=== PATIENT | female | born 1970 | race American Indian/Alaskan Native ===

== ENCOUNTER 2016-09-25 10:05 | Outpatient (CLI) | payer OTHER ==
--- NOTE | 2016-09-25 11:35 | Mammography Report ---
Screening mammogram: The patient has a diffusely symmetric and dense breast pattern bilaterally. In the MLO projection there is a focal asymmetry posteriorly which is not identified in the CC projection. In the right MLO view there is a focal asymmetry in the anterior superior breast. In the CC projection there are couple asymmetries noted in the medial breast which may be located superiorly in the lateral projection. No recent prior studies for comparison. CAD used. Impression: Bilateral breast asymmetries. Recommendation: Bilateral mammographic imaging and ultrasound as needed. BI-RADS CATEGORY: 0 = Needs additional imaging evaluation ACR BI-RADS MAMMOGRAPHIC CODES: 0 = Needs additional imaging evaluation; 1 = Negative; 2 = Benign; 3 = Probably benign; 4 = Suspicious; 5 = Malignant; 6 = Known biopsy-proven malignancy COMMENT: 1. Dense breast tissue, i.e., adenosis, fibrocystic changes, etc., may obscure an underlying neoplasm. 2. Approximately 10% of cancers are not detected with mammography. 3. A negative mammography report should not delay biopsy if a clinically suspicious mass is present..
--- NOTE | 2016-09-25 11:49 | Ultrasound Report ---
Pelvic ultrasound: Endovaginal and transabdominal imaging demonstrates an anteflexed uterus measuring 8.8 x 10.1 x 12.3 cm. There is a partially exophytic, anterior, inhomogeneous fundal mass measuring 6 cm. There is a posterior fundal inhomogeneous and mostly hypoechoic mass measuring 3.9 cm. The myometrium is generally inhomogeneous. The endometrium appears to be slightly displaced posteriorly by the anterior fundal mass with a thickness of 1 cm. The left ovary is not identified by either approach. Right ovary measures 3.8 cm and contains a 2.3 cm cyst. No free fluid identified. Impression: 1. Enlarged multi-fibroid uterus. The anterior fibroid could BE submucous in location. 2. Nonvisualized left ovary.
== END 2016-09-25 10:06 | disposition home or self-care (01) ==
LOC: SPVWC 10:05
PROVIDERS: ATTEND Family Medicine
DX: Z12.31 Encounter for screening mammogram for malignant neoplasm of breast (principal); D25.9 Leiomyoma of uterus, unspecified; N85.2 Hypertrophy of uterus; N83.201 Unspecified ovarian cyst, right side
CPT/HCPCS: 76830; 76856; G0202; 77067

== ENCOUNTER 2017-03-04 10:24 | Outpatient (CLI) | payer OTHER ==
--- NOTE | 2017-03-04 12:43 | Mammography Report ---
BILATERAL DIGITAL DIAGNOSTIC MAMMOGRAM and BILATERAL BREAST ULTRASOUND: 03/04/17 10:24:00 CLINICAL: Recall to evaluate bilateral asymmetries. COMPARISON:09/25/16 screening FINDINGS: Bilateral lateralmedial and bilateral spot compression views were performed and demonstrate persistent asymmetries. Ultrasound of the right breast (including all four quadrants and the retroareolar area) was performed. An oval solid hypoechoic smooth mass at 12 o'clock 3 cm from the nipple measures 1.4 x 1.0 x 1.4 cm. A bilobed solid mass at 1 o'clock 5.5 cm from the nipple measures 1.3 x 0.4 x 0.8 cm. A cyst at 2:30 o'clock 4 cm from the nipple measures 1.0 x 0.9 x 0.4 cm. Ultrasound of the right axilla demonstrated a single lymph node with benign morphology measuring 1.2 x 1.1 x 0.5 centimeters. Ultrasound of the inner left breast was performed and demonstrated no mass or cyst to correlate with mammographic asymmetry which is far posterior near the pectoral muscle. A complex cyst at 9 o'clock 2 cm from the nipple measures 1.5 x 0.4 x 1.3 cm. IMPRESSION: 1. 2 solid masses in the right breast. Recommend ultrasound guided needle core biopsy to exclude malignancy.2. A probably benign left inner posterior circumscribed asymmetry with no ultrasound correlate. Recommend six month followup left mammogram. I discussed the findings and the recommendation for needle core biopsy of two right breast masses with the patient at the time of the examination. BI-RADS CATEGORY: 4--Suspicious RECOMMENDATION: Ultrasound guided needle biopsy of two right breast masses. ACR BI-RADS MAMMOGRAPHIC CODES: 0 = Needs additional imaging evaluation; 1 = Negative; 2 = Benign; 3 = Probably benign; 4 = Suspicious; 5 = Malignant; 6 = Known biopsy-proven malignancy COMMENT: 1. Dense breast tissue, i.e., adenosis, fibrocystic changes, etc., may obscure an underlying neoplasm. 2. Approximately 10% of cancers are not detected with mammography. 3. A negative mammography report should not delay biopsy if a clinically suspicious mass is present. COMMENT: Patient follow-up letters are generated via our [employer] application.
== END 2017-03-04 10:25 | disposition home or self-care (01) ==
LOC: SPVWC 10:24
PROVIDERS: ATTEND Family Medicine
DX: N60.01 Solitary cyst of right breast (principal); N60.02 Solitary cyst of left breast; N63 Unspecified lump in breast; N64.89 Other specified disorders of breast
CPT/HCPCS: 76642; G0204; 77066

== ENCOUNTER 2017-03-19 08:38 | Outpatient (CLI) | payer OTHER ==
--- NOTE | 2017-03-19 10:17 | Mammography Report ---
RIGHT DIGITAL DIAGNOSTIC MAMMOGRAM: 03/19/17 08:38:00 CLINICAL: For clip placement immediately status post ultrasound biopsy at 2 sites. COMPARISON:03/04/17 FINDINGS: Biopsy clips are now identified and correlate with masses at 12 o'clock and at 1 o'clock. IMPRESSION: Concordant clip placement status post ultrasound biopsy at 2 sites. BI-RADS CATEGORY: 4--Suspicious Pathology pending.
--- NOTE | 2017-03-19 10:27 | Ultrasound Report ---
ULTRASOUND GUIDED NEEDLE CORE BIOPSY WITH CLIP PLACEMENT AT 2 SITES RIGHT BREAST : 03/19/17 CLINICAL: Right breast masses at 12 o'clock 3 cm from the nipple and at 1 o'clock 5 cm from the nipple. COMPARISON :03/04/17 FINDINGS: The procedure was explained to the patient and informed consent was obtained . Ultrasound demonstrated the previously described masses. The skin was prepped with Betadine and anesthetized with 1% lidocaine. Ultrasound needle core biopsy was performed at 12 o'clock 3 cm from the nipple through a small dermatotomy using ultrasound guidance, 2% lidocaine with epinephrine for deep anesthesia and a 14-gauge Achieve biopsy device. Imaging demonstrated satisfactory sampling. Three cores were obtained and placed in formalin. A localizer clip was deployed within the lesion. Ultrasound needle core biopsy of the second mass was performed through the same dermatotomy using ultrasound guidance, 2% lidocaine with epinephrine for deep anesthesia and a 14-gauge Achieve biopsy device. Three cores were obtained and placed in formalin. A localizer clip was deployed within the lesion. Hemostasis was obtained both sites with minimal pressure and sterile dressings were applied. The patient tolerated the procedure well and there were no apparent complications. A two-view mammogram demonstrated concordant clip placement at both sites. She was discharged in good condition and was given instructions for wound care and followup. IMPRESSION: Uncomplicated ultrasound-guided needle core biopsy of 2 right breast masses .
== END 2017-03-19 08:39 | disposition home or self-care (01) ==
LOC: SPVWC 08:38
PROVIDERS: ATTEND Family Medicine
DX: N63 Unspecified lump in breast (principal)
CPT/HCPCS: 19083; 19084; 88305; A4648; G0206

== ENCOUNTER 2019-04-26 15:19 | Outpatient (CLI) | payer OTHER ==
--- NOTE | 2019-04-27 16:44 | Mammography Report ---
DIGITAL SCREENING MAMMOGRAM WITH CAD, 04/26/2019 INDICATION: Routine screening mammography. Status post right benign biopsies. TECHNIQUE: Digital bilateral 2D mammography was obtained in the craniocaudal and mediolateral obliq ue projections. This examination was interpreted with the benefit of Computer-Aided Detection analysi s. COMPARISON: 03/19/2017 FINDINGS: Breast Density: The breasts are heterogeneously dense, which may obscure small masses. There is no evidence of new mass, suspicious calcifications or architectural distortion in either adriel ast. 2 right upper biopsy clips. IMPRESSION: No mammographic evidence of malignancy. Follow up recommendation: Routine yearly BI-RADS Category 2: Benign. A "normal" or negative report should not discourage follow up or biopsy of a clinically significant f inding. A written summary of these findings will be mailed to the patient. The patient will be entered into a mammography reporting system which will generate a reminder letter for the patient's next appointmen t at the appropriate interval. The [employer] recommends yearly mammograms starting at age 40 and continuing as l vanessa as a woman is in good health. Breast MRI is recommended for women with an approximate 20-25% or greater lifetime risk of breast cancer, including women with a strong family history of breast or ova val[place] cancer or who have been treated for Hodgkin's disease. Signer Name: Marvin Littlejohn MD Signed: 04/27/2019 4:40 PM Workstation Name: [id number]
== END 2019-04-26 15:20 | disposition home or self-care (01) ==
LOC: SPVWC 15:19
PROVIDERS: ATTEND Family Medicine
DX: Z12.31 Encounter for screening mammogram for malignant neoplasm of breast (principal)
CPT/HCPCS: 77067